=== PATIENT | male | born 1980 ===

== ENCOUNTER 2016-06-05 20:10 | Emergency (ER) | payer BC ==
--- NOTE | 2016-06-05 20:02 | EDM.PDOC ---
ED HPI ALTERED MENTAL STATUS - General Stated Complaint: AMB Time Seen by Provider: 06/05/16 19:57 Source of Information: Reports: EMS History Limitations: Reports: Altered mental status - History of Present Illness INITIAL COMMENTS - FREE TEXT/NARRATIVE: EMS responded to call bystander found Pt slumped over in truck unresponsive. EMS states no evidence of truck dmamage external or internal. Pt unresponsive appears with shallow breathing without signs of injury. ED ROS GENERAL - Review of Systems Review Of Systems: ROS reveals no pertinent complaints other than HPI. - Physical Exam Exam: See Below Exam Limited By: No limitations General Appearance: other (unresonsive, flex arm & clenched mouth on attempted ET) Eye Exam: bilateral eye: PERRL (pupils ess ER @ 4mm) Ears: normal external exam, normal canal, normal TMs Throat/Mouth: Other (unable clenched jaw) Head Exam: atraumatic Neck: normal inspection Respiratory/Chest: crackles, other (BS bilat' with assisted vent', basilar) Cardiovascular: regular rate, rhythm Neuro Exam (Abbreviated): unresponsive Extremities: normal inspection Skin Exam: Diaphoretic Course - Vital Signs Last Recorded V/S: Last Vital Signs Temp 36.1 C 06/05/16 20:12 Pulse 123 H 06/05/16 20:12 Resp 12 06/05/16 20:12 BP 135/83 06/05/16 20:12 Pulse Ox 99 06/05/16 20:12 - Orders/Labs/Meds Orders: Active Orders 24 hr Category Date Time Status EKG Documentation Completion [RC] STAT Care 06/05/16 20:03 Active Chest 1V Frontal [CR] Urgent Exams 06/05/16 20:07 Taken Chest w Cont [CT] Urgent Exams 06/05/16 21:04 Taken Head wo Cont [CT] Urgent Exams 06/05/16 21:04 Taken ABG [BLOOD GAS ARTERIAL] [BG] Stat Lab 06/05/16 21:44 Ordered Sodium Chloride 0.9% [Normal Saline] 1,000 ml Med 06/05/16 21:11 Active IV .BOLUS Sodium Chloride 0.9% [Normal Saline] 1,000 ml Med 06/05/16 21:12 Active IV .BOLUS Medication Orders Sodium Chloride (Normal Saline) 1,000 mls @ 999 mls/hr IV .BOLUS ONE Stop: 06/05/16 22:11 Last Admin: 06/05/16 21:14 Dose: 999 mls/hr Sodium Chloride (Normal Saline) 1,000 mls @ 999 mls/hr IV .BOLUS ONE Stop: 06/05/16 22:12 Last Admin: 06/05/16 21:16 Dose: 999 mls/hr Labs: Laboratory Tests 06/05/16 06/05/16 06/05/16 Range/Units 19:55 19:55 19:55 WBC 28.0 H* (5.0-10.0) 10^3/uL RBC 5.27 (4.6-6.2) 10^6/uL Hgb 16.3 (14.0-18.0) g/dL Hct 48.6 (40.0-54.0) % MCV 92.2 (80-100) fL MCH 30.9 (27.0-34.0) pg MCHC 33.5 (33.0-35.0) g/dL Plt Count 377 (150-450) 10^3/uL Neut % (Auto) 60.7 (42.2-75.2) % Lymph % (Auto) 32.5 (20.5-50.1) % [place] % (Auto) 5.8 (2-8) % Eos % (Auto) 0.6 L (1.0-3.0) % Baso % (Auto) 0.4 (0.0-1.0) % Add Manual Diff Yes Neutrophils % (Manual) 55 % Band Neutrophils % 1 % Lymphocytes % (Manual) 36 % Atypical Lymphs % 1 % Monocytes % (Manual) 6 % Eosinophils % (Manual) 1 % PT (9.0-12.0) SEC INR (0.9-1.2) D-Dimer, Quantitative > 5000 H (0-400) ng/mL Sodium 133 L (135-145) mmol/L Potassium 4.5 (3.6-5.0) mmol/L Chloride 95 L (101-111) mmol/L Carbon Dioxide 13.0 L (21.0-31.0) mmol/L Anion Gap 29.5 BUN 11 (7-18) mg/dL Creatinine 1.6 H (0.6-1.3) mg/dL Est Cr Clr Drug Dosing TNP Estimated GFR (MDRD) 49 BUN/Creatinine Ratio 6.87 Glucose 226 H (74-105) mg/dL Calcium 9.7 (8.4-10.2) mg/dl Total Bilirubin 0.5 (0.2-1.0) mg/dL AST 49 H (10-42) IU/L ALT 30 (10-60) IU/L Alkaline Phosphatase 105 (42-121) IU/L Troponin I 0.06 H* (0.00-0.02) ng/ml Total Protein 8.4 H (6.7-8.2) g/dl Albumin 5.0 (3.2-5.5) g/dl Globulin 3.4 Albumin/Globulin Ratio 1.47 Urine Color (YELLOW) Urine Appearance (CLEAR) Urine pH (5.0-9.0) Ur Specific [place] (1.005-1.030) Urine Protein (NEGATIVE) Urine Glucose (UA) (NEGATIVE) Urine Ketones (NEGATIVE) Urine Occult Blood (NEGATIVE) Urine Nitrite (NEGATIVE) Urine Bilirubin (NEGATIVE) Urine Urobilinogen (0.2-1.0) mg/dL Ur Leukocyte Esterase (NEGATIVE) Urine Opiates Screen (NEGATIVE) Ur Oxycodone Screen (NEGATIVE) Urine Methadone Screen (NEGATIVE) Ur Barbiturates Screen (NEGATIVE) U Tricyclic Antidepress (NEGATIVE) Ur Phencyclidine Scrn (NEGATIVE) Ur Amphetamine Screen (NEGATIVE) U Methamphetamines Scrn (NEGATIVE) Urine MDMA Screen (NEGATIVE) U Benzodiazepines Scrn (NEGATIVE) Urine Cocaine Screen (NEGATIVE) U Marijuana (THC) Screen (NEGATIVE) 06/05/16 06/05/16 06/05/16 Range/Units 19:55 20:00 20:00 WBC (5.0-10.0) 10^3/uL RBC (4.6-6.2) 10^6/uL Hgb (14.0-18.0) g/dL Hct (40.0-54.0) % MCV (80-100) fL MCH (27.0-34.0) pg MCHC (33.0-35.0) g/dL Plt Count (150-450) 10^3/uL Neut % (Auto) (42.2-75.2) % Lymph % (Auto) (20.5-50.1) % [place] % (Auto) (2-8) % Eos % (Auto) (1.0-3.0) % Baso % (Auto) (0.0-1.0) % Add Manual Diff Neutrophils % (Manual) % Band Neutrophils % % Lymphocytes % (Manual) % Atypical Lymphs % % Monocytes % (Manual) % Eosinophils % (Manual) % PT 10.5 (9.0-12.0) SEC INR 1.0 (0.9-1.2) D-Dimer, Quantitative (0-400) ng/mL Sodium (135-145) mmol/L Potassium (3.6-5.0) mmol/L Chloride (101-111) mmol/L Carbon Dioxide (21.0-31.0) mmol/L Anion Gap BUN (7-18) mg/dL Creatinine (0.6-1.3) mg/dL Est Cr Clr Drug Dosing Estimated GFR (MDRD) BUN/Creatinine Ratio Glucose (74-105) mg/dL Calcium (8.4-10.2) mg/dl Total Bilirubin (0.2-1.0) mg/dL AST (10-42) IU/L ALT (10-60) IU/L Alkaline Phosphatase (42-121) IU/L Troponin I (0.00-0.02) ng/ml Total Protein (6.7-8.2) g/dl Albumin (3.2-5.5) g/dl Globulin Albumin/Globulin Ratio Urine Color Yellow (YELLOW) Urine Appearance Slightly cloudy (CLEAR) Urine pH 5.0 (5.0-9.0) Ur Specific [place] 1.025 (1.005-1.030) Urine Protein >=300 H (NEGATIVE) Urine Glucose (UA) 100 H (NEGATIVE) Urine Ketones Negative (NEGATIVE) Urine Occult Blood Moderate H (NEGATIVE) Urine Nitrite Negative (NEGATIVE) Urine Bilirubin Negative (NEGATIVE) Urine Urobilinogen 0.2 (0.2-1.0) mg/dL Ur Leukocyte Esterase Negative (NEGATIVE) Urine Opiates Screen Negative (NEGATIVE) Ur Oxycodone Screen Negative (NEGATIVE) Urine Methadone Screen Negative (NEGATIVE) Ur Barbiturates Screen Negative (NEGATIVE) U Tricyclic Antidepress Negative (NEGATIVE) Ur Phencyclidine Scrn Negative (NEGATIVE) Ur Amphetamine Screen Positive H (NEGATIVE) U Methamphetamines Scrn Negative (NEGATIVE) Urine MDMA Screen Negative (NEGATIVE) U Benzodiazepines Scrn Negative (NEGATIVE) Urine Cocaine Screen Negative (NEGATIVE) U Marijuana (THC) Screen Positive H (NEGATIVE) Meds: Medications Generic Name Dose Route Start Last Admin Trade Name Freq PRN Reason Stop Dose Admin Sodium Chloride 1,000 mls @ 999 mls/hr 06/05/16 21:11 06/05/16 21:14 Normal Saline IV 06/05/16 22:11 999 mls/hr .BOLUS ONE Administration Sodium Chloride 1,000 mls @ 999 mls/hr 06/05/16 21:12 06/05/16 21:16 Normal Saline IV 06/05/16 22:12 999 mls/hr .BOLUS ONE Administration Discontinued Medications Generic Name Dose Route Start Last Admin Trade Name Freq PRN Reason Stop Dose Admin Iopamidol 100 ml 06/05/16 21:05 Isovue-370 (76%) IVPUSH 06/05/16 21:06 ONETIME ONE Labetalol HCl 5 mg 06/05/16 20:16 Normodyne IVPUSH 06/05/16 20:17 NOW ONE Protocol Lorazepam Confirm 06/05/16 20:55 06/05/16 21:12 Ativan Administered 06/05/16 20:56 Not Given Dose 2 mg .ROUTE .STK-MED ONE Lorazepam 2 mg 06/05/16 21:11 06/05/16 20:55 Ativan IVPUSH 06/05/16 21:12 2 mg ONETIME ONE Administration Rocuronium [place]ley Confirm 06/05/16 20:14 Zemuron Administered 06/05/16 20:15 Dose 100 mg .ROUTE .STK-MED ONE Succinylcholine Chloride Confirm 06/05/16 20:14 Quelicin Administered 06/05/16 20:15 Dose 200 mg .ROUTE .STK-MED ONE - Re-Assessments/Exams Free Text/Narrative Re-Assessment/Exam: 06/05/16 21:[address] Monroe @ [facility] who request PE & head CAT due to their facility's limitation on specialist. 06/05/16 21:[address] given to Dr Monroe who kindly accepted Pt. Departure - Departure Time of Disposition: 21:47 Disposition: DC/Tfer to Acute Hospital 02 Condition: fair Clinical Impression: Responsive to verbal stimulus, Elevated d-dimer, Elevated troponin Elevated white blood cell count Qualifiers: Leukocytosis type: other Qualified Code(s): D72.828 - Other elevated white blood cell count Forms: Interfacility Transfer EMTALA - My Orders Last 24 Hours: My Active Orders 06/05/16 20:03 EKG Documentation Completion [RC] STAT 06/05/16 20:07 Chest 1V Frontal [CR] Urgent 06/05/16 21:04 Chest w Cont [CT] Urgent Head wo Cont [CT] Urgent 06/05/16 21:11 Sodium Chloride 0.9% [Normal Saline] 1,000 ml IV .BOLUS 06/05/16 21:12 Sodium Chloride 0.9% [Normal Saline] 1,000 ml IV .BOLUS 06/05/16 21:44 ABG [BLOOD GAS ARTERIAL] [BG] Stat - Assessment/Plan Last 24 Hours: My Active Orders 06/05/16 20:03 EKG Documentation Completion [RC] STAT 06/05/16 20:07 Chest 1V Frontal [CR] Urgent 06/05/16 21:04 Chest w Cont [CT] Urgent Head wo Cont [CT] Urgent 06/05/16 21:11 Sodium Chloride 0.9% [Normal Saline] 1,000 ml IV .BOLUS 06/05/16 21:12 Sodium Chloride 0.9% [Normal Saline] 1,000 ml IV .BOLUS 06/05/16 21:44 ABG [BLOOD GAS ARTERIAL] [BG] Stat
[~2016-06-05 20:10] MED LIST: Rocuronium 50 MG/5 ML Vial IV ONE; Succinylcholine 200 MG/10 ML MDV IV ONE
[2016-06-05] MEDS ORDERED: Succinylcholine 200 MG/10 ML MDV ONE (20:14)
[2016-06-05] MEDS ORDERED: Rocuronium 100 MG/10 ML MDV ONE (20:14)
[2016-06-05] MEDS ORDERED: Labetalol 20 MG/4 ML Syringe IVPUSH ONE (20:16)
[2016-06-05 20:20] LABS: CHLORIDE,CL 95 mmol/L (101-111); SODIUM,NA 133 mmol/L (135-145)
[2016-06-05] MEDS ORDERED: EPINEPHrine 1:10,000 1 MG/10 ML Syringe IVPUSH ONE (20:24)
[2016-06-05] MEDS ORDERED: LORazepam 2 MG/ML Syringe ONE (20:55)
[2016-06-05] MEDS ORDERED: Iopamidol 755 Mg/ML 100 ML Bottle IVPUSH ONE (21:05)
[2016-06-05] MEDS ORDERED: LORazepam 2 MG/ML Syringe IVPUSH ONE ×2 (21:11→22:07)
[2016-06-05] MEDS ORDERED: Sodium Chloride 0.9% 1,000 ML IV ONE ×2 (21:11→21:12)
[2016-06-07 16:34] LABS: O2 DELIVERY DEVICE VENTILATOR
[2016-06-07 16:35] LABS: PCO2 ARTERIAL 37 mmHg (35-45); PO2 ARTERIAL 104 mmHg (70-100)
[2016-06-07 16:37] LABS: BASE EXCESS ARTERIAL -9 mmol/L ((-2)-(+3)); BICARBONATE,ARTERIAL 16.6 mmol/L (22-26); O2 FLOW RATE 15; O2 SATURATION ARTERIAL 97 % (95-100)
[2016-06-07 16:38] LABS: ALLEN TEST POSITIVE
--- NOTE | 2016-06-10 12:43 | EKG ---
06/05/2016 - [facility]EL[facility]ATT P - Twelve-lead EKG on 06/05, shows sinus tachycardia with nonspecific ST-T wave changes noted on lead V2, V3, and also on lead 2 and [address]. [address]- elevation or ST-depression noted on this 12-lead EKG. Heart rate of 120 noted. [facility] /[id number]
== END 2016-06-05 22:20 ==
LOC: DL.ED 20:10
DX: R41.82 Altered mental status, unspecified (principal); D72.828 Other elevated white blood cell count; R79.89 Other specified abnormal findings of blood chemistry
CPT/HCPCS: 31500; 36415; 36600; 70450; 71010; 71260; 80053; 80305; 81003; 82803; 84484; 85025; 85379; 85610; 93005; 96361; 96374; 96375; 96376; 99285; G0480; J0171; J0330; J2060; J7030; Q9967